=== PATIENT | male | born 1985 | race Caucasian/White ===

== ENCOUNTER → 2022-12-26 | Outpatient (CLI) | payer BC ==
[2022-12-26 08:36] LABS: Basophils # (auto) 0.1 10 ^3/uL (0-0.2); Basophils % (auto) 1.3 % (0.0-2.0); Eosinophils # (auto) 0.2 10 ^3/uL (0-0.8); Eosinophils % (auto) 3.6 % (0.0-7.0); Hematocrit 43.2 % (41.0-53.0); Hemoglobin 14.9 g/dL (13.5-17.5); Lymphocytes # (auto) 1.4 10 ^3/uL (0.4-5.4); Lymphocytes % (auto) 24.6 % (10.0-50.0); Mean Corpuscular Hemoglobin 29.8 pg (28.0-32.0); Mean Corpuscular Hgb Conc. 34.5 g/dL (32.0-36.0); Mean Corpuscular Volume 86.4 fL (80.0-100.0); Monocytes # (auto) 0.7 10 ^3/uL (0-1.3); Monocytes % (auto) 12.3 % (0.0-12.0); Neutrophils # (auto) 3.4 10 ^3/uL (1.6-8.6); Neutrophils % (auto) 58.2 % (37.0-80.0); Nucleated Red Blood Cells % 0.2 %; Red Cell Distribution Width 14.3 % (11.8-14.3); White Blood Cell 5.8 10^3/uL (4.4-10.8)
[2022-12-26 10:04] LABS: Potassium 3.8 mmol/L (3.5-5.1)
[2022-12-26 10:30] LABS: Albumin 4.1 g/dL (3.4-5.0); BUN/Creatinine Ratio 16.8; Bilirubin, Total 0.5 mg/dL (0.2-1.0); Calcium 8.7 mg/dL (8.5-10.1); Total Protein 7.5 g/dL (6.4-8.2)
== END | disposition home or self-care (01) ==
LOC: LAB 08:04
PROVIDERS: ATTEND Student in an Organized Health Care Education/Training Program
DX: Z00.00 Encounter for general adult medical examination without abnormal findings (principal)
CPT/HCPCS: 36415; 80053; 85025

== ENCOUNTER 2023-07-27 08:24 | Emergency (ER) | payer BC ==
[~2023-07-27] VITALS: Ht 175.3 cm; Wt 96.6 kg
[2023-07-27 08:24] VITALS: BP 124/86; PULSE 86; RESP 18; TEMP 97.4; O2SAT 97
[~2023-07-27 08:24] MED LIST: IBU600T PO; LEVO500T91 PO
[2023-07-27] MEDS ORDERED: cefTRIAXone SOD 1,000 MG VL IM ONE (09:30)
== END 2023-07-27 09:38 | disposition home or self-care (01) ==
LOC: ER 08:24
DX: S61.258A Open bite of other finger without damage to nail, initial encounter (principal); Z88.1 Allergy status to other antibiotic agents; W55.01XA Bitten by cat, initial encounter; Y93.89 Activity, other specified; Y92.89 Other specified places as the place of occurrence of the external cause; Y99.8 Other external cause status
CPT/HCPCS: 73140; 96372; 99283; J0696